=== PATIENT | female | born 1995 | race Caucasian/White ===

== ENCOUNTER 2017-02-20 11:32 | Emergency (ER) | payer OTHER ==
[~2017-02-20] VITALS: Ht 154.9 cm; Wt 58.0 kg
[~2017-02-20 11:32] MED LIST: IBUP-1459 PO; QUET1TAB32 PO; SUMA50TA15 PO
[2017-02-20 11:36] VITALS: TEMP 36.6
[2017-02-20 11:55] VITALS: Ht 154.9 cm; Wt 58.0 kg
[2017-02-20 12:21] LABS: BASO % 0.4 %; BASO ABS # 0.03 K/uL (0-0.2); COMPLETE YES; EOS % 1.1 %; HEMATOCRIT 40.5 % (37-47); IG% 0.1 %; LYMPH % 22.6 %; LYMPH ABS # 1.72 K/uL (1.2-3.4); MEAN CELL VOLUME 87.7 fL (80-100); MEAN CORPUSCULAR HEMOGLOBIN 30.5 pg (25-34); MEAN CORPUSCULAR HGB CONC 34.8 g/dl (32-36); MEAN PLATELET VOLUME 10.2 fL (7.4-10.4); MONO % 6.3 %; NEUT % 69.5 %; PLATELET COUNT 250 K/uL (130-400); RED BLOOD COUNT 4.62 M/uL (4.2-5.4); WHITE BLOOD COUNT 7.61 K/uL (4.8-10.8)
[2017-02-20 12:34] LABS: PREG INTERNAL NEGATIVE QC NEG CLEAR BACKGROUND; PREG INTERNAL POSITIVE QC POS CONTROL LINE
[2017-02-20 12:37] LABS: URINE APPEARANCE CLOUDY (CLEAR); URINE BILIRUBIN NEG (NEG); URINE COLOR ORANGE; URINE EPITHELIAL CELL AUTO >30 /lpf (0-5); URINE NITRITE NEG (NEG); URINE PH 6.5 (4.5-7.5); URINE SPECIFIC GRAVITY 1.024 (1.000-1.030); UROBILINOGEN NEG (NEG)
[2017-02-20 12:38] LABS: MANUAL MICROSCOPIC REQUIRED? NO; REVIEW REQ? NO
[2017-02-20] MEDS ORDERED: IBUP-103 PO (12:38)
[2017-02-20] MEDS ORDERED: SERT-234 PO (12:38)
[2017-02-20 12:39] LABS: BLOOD UREA NITROGEN 10 mg/dl (7-18); BUN/CREATININE RATIO 16.9 (10-20); CALCIUM 9.1 mg/dl (8.5-10.1); CARBON DIOXIDE 25 mmol/L (21-32); CHLORIDE 111 mmol/L (98-107); CREATININE 0.58 mg/dl (0.60-1.20); GLUCOSE 96 mg/dl (70-99); POTASSIUM 3.8 mmol/L (3.5-5.1); SODIUM 141 mmol/L (136-145)
--- NOTE | 2017-02-20 13:45 | DIAGNOSTIC IMAGING REPORT ---
ULTRASOUND OF THE PELVIS CLINICAL HISTORY: Vaginal bleeding. COMPARISON STUDY: Pelvic CT dated 11/24/2014. TECHNIQUE: Real-time, grayscale, and color flow sonography of the pelvis is performed both transabdominally and endovaginally. Images are reviewed in the transverse and longitudinal planes. FINDINGS: Uterus: The uterus is normal in size and echotexture, measuring 6.6 x 4.2 x 7.6 cm. Endometrium: The endometrium is normal in appearance, and the endometrial stripe is normal in thickness measuring up to 0.6 cm. Trace fluid is noted in the endometrial canal. Tiny endometrial calcifications are suggested. Ovaries: The ovaries are normal in size and morphology. The right ovary measures 2.9 x 1.8 x 1.9 cm and the left ovary measures 2.4 x 1.4 x 2.1 cm. Small bilateral ovarian follicles are noted. Normal Doppler waveforms are shown within both ovaries. Pelvis: There is no free fluid in the cul-de-sac. No concerning adnexal lesion is seen. IMPRESSION: No acute sonographic abnormality is identified in the pelvis. Electronically signed by: Avery Camejo M.D. 02/20/2017 1:44 PM Dictated Date/Time: 02/20/2017 1:42 PM
--- NOTE | 2017-02-20 14:20 | EMERGENCY ROOM VISIT NOTE ---
History Report prepared by Kylah: Michelle Adams Under the Supervision of: Dr. Andrew Oconnell D.O. First contact with patient: 11:45 Chief Complaint: ED VAG BLEEDING Stated Complaint: VAG. BLEEDING, SEVERE STOMACH PAIN History of Present Illness The patient is a 22 year old female who presents to the Emergency Room with complaints of persistent vaginal bleeding starting 2 weeks ago. This morning she woke up with severe abdominal pain and had difficulty getting out of bed. She decided to come to the ED. She delivered a baby 3 months ago. It was her first . She denies any chance of . She had Nexplanon implanted 1 month ago. She has not had any periods since. She has a history of ovarian cysts. Source of History: patient Onset: 2 weeks ago Position: other (vaginal) Quality: other (bleeding) Timing: other (persistent) Associated Symptoms: + abdominal pain Review of Systems See HPI for pertinent positives & negatives. A total of 10 systems reviewed and were otherwise negative. Past Medical & Surgical Medical Problems: (1) Abdominal pain (2) Cellulitis (3) Chest pain (4) Contact dermatitis (5) Heroin withdrawal (6) Heroin withdrawal (7) Hypoglycemia (8) Hypotension (9) Kidney infection (10) Migraine (11) No chronic diseases present (12) Opiate overdose (13) Sepsis Family History FHx: asthma FHx: cancer FHx: lung disease Social History Smoking Status: Current Every Day Smoker Alcohol Use: occasionally Marital Status: single Housing Status: lives with family Occupation Status: unemployed Current/Historical Medications Scheduled Sertraline (Zoloft), 100 MG PO DAILY Scheduled PRN Ibuprofen Tab (Advil), 200-800 MG PO UD PRN for Pain Allergies Coded Allergies: Acetaminophen (Unverified Allergy, Unknown, RASH/NAUSEA, 02/20/17) Clindamycin (Unverified Adverse Reaction, Unknown, YEAST INFECTION, ) Physical Exam Vital Signs Date Time Temp Pulse Resp B/P (MAP) Pulse Ox O2 Delivery O2 Flow Rate FiO2 02/20/17 14:05 64 20 102/50 97 Room Air 02/20/17 11:36 36.6 96 16 103/65 99 Physical Exam CONSTITUTIONAL/VITAL SIGNS: Reviewed / noted above. GENERAL: Non-toxic in appearance. INTEGUMENTARY: Warm, dry, and [place]. HEAD: Normocephalic. EYES: without scleral icterus or trauma. ENT/OROPHARYNX: clear and moist. LYMPHADENOPATHY/NECK: Is supple without lymphadenopathy or meningismus. RESPIRATORY: Lungs clear and equal. CARDIOVASCULAR: Regular rate and rhythm. GI/ABDOMEN: Soft and diffusely tender especially in the LLQ. No organomegaly or pulsatile mass. No rebound or guarding. Normal bowel sounds. EXTREMITIES: Warm and well perfused. BACK: No CVA tenderness. NEUROLOGICAL: Intact without focal deficits. PSYCHIATRIC: normal affect. MUSCULOSKELETAL: Normally developed with good muscle tone. Medical Decision & Procedures ER Provider Diagnostic Interpretation: Radiology results as stated below per my review and radiologist interpretation: ULTRASOUND OF THE PELVIS CLINICAL HISTORY: Vaginal bleeding. COMPARISON STUDY: Pelvic CT dated 11/24/2014. TECHNIQUE: Real-time, grayscale, and color flow sonography of the pelvis is performed both transabdominally and endovaginally. Images are reviewed in the transverse and longitudinal planes. FINDINGS: Uterus: The uterus is normal in size and echotexture, measuring 6.6 x 4.2 x 7.6 cm. Endometrium: The endometrium is normal in appearance, and the endometrial stripe is normal in thickness measuring up to 0.6 cm. Trace fluid is noted in the endometrial canal. Tiny endometrial calcifications are suggested. Ovaries: The ovaries are normal in size and morphology. The right ovary measures 2.9 x 1.8 x 1.9 cm and the left ovary measures 2.4 x 1.4 x 2.1 cm. Small bilateral ovarian follicles are noted. Normal Doppler waveforms are shown within both ovaries. Pelvis: There is no free fluid in the cul-de-sac. No concerning adnexal lesion is seen. IMPRESSION: No acute sonographic abnormality is identified in the pelvis. Electronically signed by: Avery Camejo M.D. 02/20/2017 1:44 PM Dictated Date/Time: 02/20/2017 1:42 PM Laboratory Results 02/20/17 12:09 Red Blood Count 4.62, Mean Corpuscular Volume 87.7, Mean Corpuscular Hemoglobin 30.5, Mean Corpuscular Hemoglobin Concent 34.8, Mean Platelet Volume 10.2, Neutrophils (%) (Auto) 69.5, Lymphocytes (%) (Auto) 22.6, Monocytes (%) (Auto) 6.3, Eosinophils (%) (Auto) 1.1, Basophils (%) (Auto) 0.4, Neutrophils # (Auto) 5.29, Lymphocytes # (Auto) 1.72, Monocytes # (Auto) 0.48, Eosinophils # (Auto) 0.08, Basophils # (Auto) 0.03 02/20/17 12:09 Test 02/20/17 12:00 02/20/17 12:09 Urine Color ORANGE Urine Appearance CLOUDY (CLEAR) Urine pH 6.5 (4.5-7.5) Urine Specific [place] 1.024 (1.000-1.030) Urine Protein TRACE (NEG) Urine Glucose (UA) NEG (NEG) Urine Ketones NEG (NEG) Urine Occult Blood 3+ (NEG) Urine Nitrite NEG (NEG) Urine Bilirubin NEG (NEG) Urine Urobilinogen NEG (NEG) Urine Leukocyte Esterase SMALL (NEG) Urine WBC (Auto) 10-30 /hpf (0-5) Urine RBC (Auto) >30 /hpf (0-4) Urine Hyaline Casts (Auto) 5-10 /lpf (0-5) Urine Epithelial Cells (Auto) >30 /lpf (0-5) Urine Bacteria (Auto) NEG (NEG) Urine Test NEG (NEG) White Blood Count 7.61 K/uL (4.8-10.8) Red Blood Count 4.62 M/uL (4.2-5.4) Hemoglobin 14.1 g/dL (12.0-16.0) Hematocrit 40.5 % (37-47) Mean Corpuscular Volume 87.7 fL (80-100) Mean Corpuscular Hemoglobin 30.5 pg (25-34) Mean Corpuscular Hemoglobin Concent 34.8 g/dl (32-36) Platelet Count 250 K/uL (130-400) Mean Platelet Volume 10.2 fL (7.4-10.4) Neutrophils (%) (Auto) 69.5 % Lymphocytes (%) (Auto) 22.6 % Monocytes (%) (Auto) 6.3 % Eosinophils (%) (Auto) 1.1 % Basophils (%) (Auto) 0.4 % Neutrophils # (Auto) 5.29 K/uL (1.4-6.5) Lymphocytes # (Auto) 1.72 K/uL (1.2-3.4) Monocytes # (Auto) 0.48 K/uL (0.11-0.59) Eosinophils # (Auto) 0.08 K/uL (0-0.5) Basophils # (Auto) 0.03 K/uL (0-0.2) RDW Standard Deviation 40.1 fL (36.4-46.3) RDW Coefficient of Variation 12.5 % (11.5-14.5) Immature Granulocyte % (Auto) 0.1 % Immature Granulocyte # (Auto) 0.01 K/uL (0.00-0.02) Anion Gap 5.0 mmol/L (3-11) Est Creatinine Clear Calc Drug Dose 124.6 ml/min Estimated GFR () > 150.0 Estimated GFR (Non- 130.8 BUN/Creatinine Ratio 16.9 (10-20) Calcium Level 9.1 mg/dl (8.5-10.1) Laboratory results as stated above per my review. ED Course 1146: Previous medical records were reviewed. The patient was evaluated in room B4B. A complete history and physical examination was performed. 1422: On reevaluation, the patient is resting comfortably. I discussed the results and findings with the patient. She verbalized agreement of the treatment plan. She was discharged home. Medical Decision Differential diagnosis: Etiologies such as ectopic , dysfunction uterine bleeding, bleeding dyscrasia, trauma, infection, as well as others were entertained. This is a 22-year-old female who presents to the ED with a chief complaint of left lower quadrant abdominal pain as well as vaginal bleeding for the past couple of weeks. She states that she delivered a child 3 months ago. She is a . She is currently on Implenon implanted control. This was implanted a month ago. She sees a [facility] DIVISION SALES MANAGER but did not contact them about her bleeding. She has not had a period since her delivery. She states that she is normally irregular. Abdominal exam revealed some mild tenderness in the left lower quadrant. Ultrasound of the pelvis did not show acute process. test was negative. CBC and PRP are normal. Urine did not show infection. The patient was told the results. She is felt to be stable for discharge. She was told to follow-up with her DIVISION SALES MANAGER. Medication Reconcilliation Current Medication List: was personally reviewed by me Blood Pressure Screening Patient's blood pressure: Normal blood pressure Blood pressure disposition: Did not require urgent referral Impression Primary Impression: Abnormal uterine bleeding Scribe Attestation The scribe's documentation has been prepared under my direction and personally reviewed by me in its entirety. I confirm that the note above accurately reflects all work, treatment, procedures, and medical decision making performed by me. Departure Information Dispostion Home / Self-Care Referrals No Doctor, Assigned (PCP) Patient Instructions My [facility] Additional Instructions Follow-up with your DIVISION SALES MANAGER. Call tomorrow for an appointment. Return to the emergency department for worsening or new symptoms or any concerns. You have been examined and treated today on an emergency basis only. This is not a substitute for, or an effort to provide, complete comprehensive medical care. It is impossible to recognize and treat all injuries or illnesses in a single emergency department visit. It is therefore important that you follow up closely with your doctor. Call as soon as possible for an appointment.
[2017-02-20 15:24] VITALS: BP 94/65; PULSE 70; O2SAT 98
== END 2017-02-20 15:20 | disposition home or self-care (01) ==
LOC: C.EDB 11:36 → MERGE 11:36 → C.EDB 15:20
DX: N93.9 Abnormal uterine and vaginal bleeding, unspecified (principal); R10.9 Unspecified abdominal pain; F17.200 Nicotine dependence, unspecified, uncomplicated; Z82.5 Family history of asthma and other chronic lower respiratory diseases

== ENCOUNTER 2017-09-24 00:06 | Emergency (ER) | payer OTHER ==
[~2017-09-24] VITALS: Ht 154.9 cm; Wt 57.5 kg
[~2017-09-24 00:06] MED LIST changes: +IBUP-103 PO; -IBUP-1459 PO; -QUET1TAB32 PO; +SERT-234 PO; -SUMA50TA15 PO
[2017-09-24 00:09] VITALS: TEMP 37.6; Ht 154.9 cm; Wt 57.5 kg
[2017-09-24] MEDS ORDERED: KETOROLAC TROMETHAMINE 30 MG/ML VIAL IV STA (00:36)
[2017-09-24] MEDS ORDERED: SODIUM CHLORIDE 0.9% 1000ML 1,000 ML IV STA (00:36)
--- NOTE | 2017-09-24 00:50 | EMERGENCY ROOM VISIT NOTE ---
History Report prepared by Kylah: Silvana Ruiz Under the Supervision of: Dr. Neha Bradley D.O. First contact with patient: 00:15 Chief Complaint: FEVER Stated Complaint: FEVER,SORE THROAT,TROUBLE BREATHING,LOW BK PAIN History of Present Illness The patient is a 22 year old female who presents to the Emergency Room with complaints of a worsening fever starting yesterday. The patient states that she started with a sore throat and then mucus developed in her chest. She states that she feels like she can't breathe. She reports that sometimes she breathes the mucus in and it hurts. The patient states that it is worse when she tries to swallow. She reports that she has taken Tylenol cold and flu with no relief. She notes that she last took it 4 hours ago. The patient complains of loss of appetite, abdominal pain, headache, lower back pain, fever, and chills. She notes that she has not taken in fluids and has not urinated today. The patient denies cough, diarrhea, vomiting, rash, being around people are sick, recent travel, and getting the flu shot. The patient notes that she is a smoker. The patient notes that she gets strep often. Source of History: patient Onset: yesterday Position: other (global) Quality: other (fever) Timing: worsening Modifying Factors (Worsening): other (swallowing) Associated Symptoms: + fevers, + chills, + headache, + sorethroat, + SOB, + abdominal pain, + back pain, + urinary symptoms, No cough, No vomiting, No diarrhea, No rash Note: The patient complains of loss of appetite. Review of Systems See HPI for pertinent positives & negatives. A total of 10 systems reviewed and were otherwise negative. 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 (14) Sepsis Family History FHx: asthma FHx: cancer FHx: lung disease Social History Smoking Status: Current Some Day Smoker Alcohol Use: occasionally Marital Status: single Housing Status: lives with family Occupation Status: unemployed Current/Historical Medications Scheduled Amoxicillin (Amoxil), 500 MG PO BID Sertraline (Zoloft), 100 MG PO DAILY Scheduled PRN Ibuprofen Tab (Advil), 200-800 MG PO UD PRN for Pain Allergies Coded Allergies: Acetaminophen (Unverified Allergy, Unknown, RASH/NAUSEA, 04/14/17) Clindamycin (Unverified Adverse Reaction, Unknown, YEAST INFECTION, ) Physical Exam Vital Signs Date Time Temp Pulse Resp B/P (MAP) Pulse Ox O2 Delivery O2 Flow Rate FiO2 09/24/17 03:40 86 16 109/63 98 09/24/17 01:51 88 16 109/67 96 Room Air 09/24/17 00:09 37.6 112 16 110/57 96 Room Air Physical Exam GENERAL: alert, well appearing, well nourished, no distress, non-toxic EYE EXAM: normal conjunctiva, PERRL and EOM's grossly intact OROPHARYNX: mild tonsillar hypertrophy, minimal exudate, mild erythema, lips, buccal mucosa, and tongue normal and mucous membranes are moist. no other mucocutaneous lesions. Uvula is midline NECK: supple, no nuchal rigidity, no adenopathy, non-tender LUNGS: Lungs are diminished. Clear to auscultation. No wheezes, rhonchi, or rales. Normal chest wall mechanics HEART: no murmurs, S1 normal and S2 normal ABDOMEN: abdomen soft, non-tender, normo-active bowel sounds, no masses, no rebound or guarding. BACK: Back is symmetrical on inspection and there is no deformity, no midline tenderness, no CVA tenderness. SKIN: no rashes and no bruising UPPER EXTREMITIES: upper extremities are grossly normal. LOWER EXTREMITIES: No pitting edema. NEURO EXAM: Normal sensorium, cranial nerves II-XII grossly intact, normal speech, no gross weakness of arms, no grossly weakness of legs. Medical Decision & Procedures ER Provider Diagnostic Interpretation: CHEST X-RAY: The results were interpreted by me. No cardiomegaly. No effusion. No focal infiltrate. No wide mediastinum. No pulmonary edema. Laboratory Results 09/24/17 01:05 Red Blood Count 3.78, Mean Corpuscular Volume 87.3, Mean Corpuscular Hemoglobin 30.2, Mean Corpuscular Hemoglobin Concent 34.5, Mean Platelet Volume 10.1, Neutrophils (%) (Auto) 79.7, Lymphocytes (%) (Auto) 11.6, Monocytes (%) (Auto) 8.3, Eosinophils (%) (Auto) 0.1, Basophils (%) (Auto) 0.1, Neutrophils # (Auto) 11.21, Lymphocytes # (Auto) 1.64, Monocytes # (Auto) 1.17, Eosinophils # (Auto) 0.02, Basophils # (Auto) 0.02 09/24/17 01:05 Test 09/24/17 00:50 09/24/17 01:05 09/24/17 01:45 Influenza Type A Antigen Neg for Influ A (NEG) Influenza Type B Antigen Neg for Influ B (NEG) White Blood Count 14.09 K/uL (4.8-10.8) Red Blood Count 3.78 M/uL (4.2-5.4) Hemoglobin 11.4 g/dL (12.0-16.0) Hematocrit 33.0 % (37-47) Mean Corpuscular Volume 87.3 fL (80-100) Mean Corpuscular Hemoglobin 30.2 pg (25-34) Mean Corpuscular Hemoglobin Concent 34.5 g/dl (32-36) Platelet Count 185 K/uL (130-400) Mean Platelet Volume 10.1 fL (7.4-10.4) Neutrophils (%) (Auto) 79.7 % Lymphocytes (%) (Auto) 11.6 % Monocytes (%) (Auto) 8.3 % Eosinophils (%) (Auto) 0.1 % Basophils (%) (Auto) 0.1 % Neutrophils # (Auto) 11.21 K/uL (1.4-6.5) Lymphocytes # (Auto) 1.64 K/uL (1.2-3.4) Monocytes # (Auto) 1.17 K/uL (0.11-0.59) Eosinophils # (Auto) 0.02 K/uL (0-0.5) Basophils # (Auto) 0.02 K/uL (0-0.2) RDW Standard Deviation 40.6 fL (36.4-46.3) RDW Coefficient of Variation 12.6 % (11.5-14.5) Immature Granulocyte % (Auto) 0.2 % Immature Granulocyte # (Auto) 0.03 K/uL (0.00-0.02) Anion Gap 8.0 mmol/L (3-11) Est Creatinine Clear Calc Drug Dose 138.4 ml/min Estimated GFR () > 150.0 Estimated GFR (Non- 135.6 BUN/Creatinine Ratio 14.0 (10-20) Calcium Level 8.7 mg/dl (8.5-10.1) Total Bilirubin 0.4 mg/dl (0.2-1) Aspartate Amino Transf (AST/SGOT) 10 U/L (15-37) Alanine Aminotransferase (ALT/SGPT) 18 U/L (12-78) Alkaline Phosphatase 94 U/L (45-117) Total Protein 7.4 gm/dl (6.4-8.2) Albumin 3.6 gm/dl (3.4-5.0) Globulin 3.8 gm/dl (2.5-4.0) Albumin/Globulin Ratio 0.9 (0.9-2) Human Chorionic Gonadotropin, Qual NEG (NEG) Monoscreen NEG (NEG) Urine Color DK YELLOW Urine Appearance CLOUDY (CLEAR) Urine pH 6.5 (4.5-7.5) Urine Specific [place] 1.036 (1.000-1.030) Urine Protein 2+ (NEG) Urine Glucose (UA) NEG (NEG) Urine Ketones TRACE (NEG) Urine Occult Blood 3+ (NEG) Urine Nitrite NEG (NEG) Urine Bilirubin NEG (NEG) Urine Urobilinogen NEG (NEG) Urine Leukocyte Esterase SMALL (NEG) Urine WBC (Auto) 10-30 /hpf (0-5) Urine RBC (Auto) 0-4 /hpf (0-4) Urine Hyaline Casts (Auto) 0 /lpf (0-5) Urine Epithelial Cells (Auto) >30 /lpf (0-5) Urine Bacteria (Auto) 2+ (NEG) Urine Renal Epithelial Cells /lpf (0-5) Urine Pathogenic Casts /lpf (0) Laboratory results per my review. Medications Administered Medications (Trade) Dose Ordered Sig/Kendall Route Start Time Stop Time Status Last Admin Dose Admin Sodium Chloride 1,000 ml @ 999 mls/hr Q1H1M STAT IV 09/24/17 00:36 18 01:36 DC 09/24/17 00:36 999 MLS/HR Ketorolac Tromethamine (Toradol Inj) 30 mg NOW STAT IV 09/24/17 00:36 3/24/18 00:41 DC 09/24/17 00:58 30 MG Lidocaine HCl (Viscous Lidocaine 2% Soln) 20 ml NOW ONCE MT 09/24/17 03:15 09/24/17 03:16 DC 09/24/17 03:39 20 ML Acetaminophen (Tylenol Tab) 1,000 mg NOW STAT PO 09/24/17 03:21 09/24/17 03:22 DC 09/24/17 03:39 1,000 MG Dexamethasone Sodium Phosphate (Decadron Inj) 10 mg NOW STAT IV 09/24/17 03:21 09/24/17 03:22 DC 09/24/17 03:39 10 MG ED Course 0029: The patient was evaluated in room A12B. A complete history and physical exam was performed. 0036: Ordered Toradol Inj 30 mg IV, NSS 1000 ml @ 999 mls/hr IV. 0256: Upon reevaluation, the patient is feeling better. I discussed the findings and the treatment plan with the patient. She verbalizes agreement and understanding. The patient was discharged home. 0315: Ordered Lidocaine HCl 20 ml MT. 0321: Ordered Decadron Inj 10 mg IV, Tylenol Tab 1000 mg PO. Medical Decision Etiologies such as viral syndrome, tonsillitis, streptococcal pharyngitis, mononucleosis, peritonsillar abscess, retropharyngeal abscess, otitis, pneumonia , influenza, meningitis/encephalitis, as well as others were entertained. Patient here with presentation consistent with influenza, exam suggestive of possible strep pharyngitis/tonsillitis. Strep swab negative. No fever here, mild leukocytosis noted. Other labs and imaging are reassuring. Patient improved with IV fluids and additional medications here. Patient given prescription as a precaution to go home with for possible strep. Discussed when to start it, symptoms to watch and return for, need for close follow-up, pending additional strep culture, she verbalized understanding. Patient tolerated p.o. here without incident, ambulatory with a steady gait, vital signs otherwise stable. Presentation and exam is not consistent with meningitis /encephalitis, did not feel patient warranted LP at this time. Doubt bacteremia /sepsis. Medication Reconcilliation Current Medication List: was personally reviewed by me Blood Pressure Screening Patient's blood pressure: Normal blood pressure Blood pressure disposition: Did not require urgent referral Impression Primary Impression: Influenza-like symptoms Additional Impression: Tonsillitis Scribe Attestation The scribe's documentation has been prepared under my direction and personally reviewed by me in its entirety. I confirm that the note above accurately reflects all work, treatment, procedures, and medical decision making performed by me. Departure Information Dispostion Home / Self-Care Prescriptions Amoxicillin (AMOXIL) 500 Mg Cap 500 MG PO BID, #20 CAP Prov: Neha Bradley, DO 09/24/17 Referrals No Doctor, Assigned (PCP) Forms HOME CARE DOCUMENTATION FORM, IMPORTANT VISIT INFORMATION Patient Instructions My [facility] Additional Instructions Please sip clear fluids at frequent intervals to stay well-hydrated. Please use Tylenol and ibuprofen as needed for pain. If you continue to have a sore throat and/or develop fevers, please start the antibiotic. Please continue to monitor for any other changing symptoms including vomiting, diarrhea, abdominal pain, increased headache or neck pain, trouble swallowing, rashes or sores, few of these are any other new concerning symptoms, please return the emergency room. Problem Qualifiers
[2017-09-24 01:24] LABS: BASO % 0.1 %; BASO ABS # 0.02 K/uL (0-0.2); EOS % 0.1 %; EOS ABS # 0.02 K/uL (0-0.5); HEMOGLOBIN 11.4 g/dL (12.0-16.0); IG# 0.03 K/uL (0.00-0.02); LYMPH % 11.6 %; LYMPH ABS # 1.64 K/uL (1.2-3.4); MEAN CELL VOLUME 87.3 fL (80-100); MEAN CORPUSCULAR HEMOGLOBIN 30.2 pg (25-34); MEAN CORPUSCULAR HGB CONC 34.5 g/dl (32-36); MEAN PLATELET VOLUME 10.1 fL (7.4-10.4); MONO % 8.3 %; MONO ABS # 1.17 K/uL (0.11-0.59); NEUT % 79.7 %; NEUT ABS # 11.21 K/uL (1.4-6.5); PLATELET COUNT 185 K/uL (130-400); RED CELL DISTRIBUTION WIDTH CV 12.6 % (11.5-14.5); RED CELL DISTRIBUTION WIDTH SD 40.6 fL (36.4-46.3); WHITE BLOOD COUNT 14.09 K/uL (4.8-10.8)
[2017-09-24 01:37] LABS: INFLUENZA B ANTIGEN Neg for Influ B (NEG)
[2017-09-24 01:42] LABS: ALBUMIN 3.6 gm/dl (3.4-5.0); ALT/SGPT 18 U/L (12-78); AST/SGOT 10 U/L (15-37); BLOOD UREA NITROGEN 7 mg/dl (7-18); CALCIUM 8.7 mg/dl (8.5-10.1); CARBON DIOXIDE 24 mmol/L (21-32); CREATININE 0.52 mg/dl (0.60-1.20); GLUCOSE 79 mg/dl (70-99); POTASSIUM 3.4 mmol/L (3.5-5.1); SODIUM 136 mmol/L (136-145)
[2017-09-24 01:44] LABS: ALKALINE PHOSPHATASE 94 U/L (45-117); TOTAL PROTEIN 7.4 gm/dl (6.4-8.2)
[2017-09-24] MEDS ORDERED: LIDOCAINE HCL 2% VISC SOLN 20 ML UDC MT ONE (03:15)
[2017-09-24] MEDS ORDERED: ACETAMINOPHEN 500 MG TAB PO STA (03:21)
[2017-09-24] MEDS ORDERED: DEXAMETHASONE SOD INJ 4 MG/ML VIAL IV STA (03:21)
[2017-09-24] MEDS ORDERED: AMOX500C3 PO (03:27)
[2017-09-24 03:40] VITALS: BP 109/63; PULSE 86; O2SAT 98
--- NOTE | 2017-09-24 06:40 | DIAGNOSTIC IMAGING REPORT ---
CHEST 2 VIEWS ROUTINE CLINICAL HISTORY: sob dyspnea COMPARISON STUDY: 11/27/2014 FINDINGS: The bones soft tissues and hemidiaphragms are normal. The cardiomediastinal silhouette is normal. The lungs are clear. The pulmonary vasculature is normal. IMPRESSION: Negative chest. The above report was generated using voice recognition software. It may contain grammatical, syntax or spelling errors. Electronically signed by: Fermin Segovia M.D. 09/24/2017 6:39 AM Dictated Date/Time: 09/24/2017 6:39 AM
== END 2017-09-24 03:40 | disposition home or self-care (01) ==
LOC: C.EDB 00:08 → C.EDA 03:40
DX: J03.90 Acute tonsillitis, unspecified (principal); F17.210 Nicotine dependence, cigarettes, uncomplicated; Z82.5 Family history of asthma and other chronic lower respiratory diseases; Z80.9 Family history of malignant neoplasm, unspecified; Z79.899 Other long term (current) drug therapy; Z88.1 Allergy status to other antibiotic agents; Z88.6 Allergy status to analgesic agent